=== PATIENT | male | born 1985 | race Caucasian/White ===

== ENCOUNTER 2021-03-11 12:15 | Emergency (ER) | payer OTHER ==
[2021-03-11 12:42] VITALS: TEMP 98.1; BMI 19.5
[2021-03-11] MEDS ORDERED: ACETAMINOPHEN 325 MG TABLET (FP) PO ONE (14:20)
[2021-03-11] MEDS ORDERED: ACETAMINOPHEN 325 MG TABLET (FP) ONE (15:23)
[2021-03-11 17:16] VITALS: BP 114/76; PULSE 86
== END 2021-03-11 15:35 | disposition left against medical advice (07) ==
LOC: JER 12:15
PROC: 0HQ1XZZ Repair Face Skin, External Approach (ICD-10-PCS; principal; 2021-03-11)
DX: S01.112A Laceration without foreign body of left eyelid and periocular area, initial encounter (principal)
CPT/HCPCS: 70486-TC; 99283-25